=== PATIENT | female | born 1935 | race Caucasian/White ===

== ENCOUNTER 2020-05-09 15:57 | Emergency (ER) | payer OTHER ==
[~2020-05-09] VITALS: Ht 157.5 cm; Wt 65.3 kg
[2020-05-09 16:04] VITALS: Ht 157.5 cm; Wt 65.3 kg
[2020-05-09 19:11] VITALS: BP 161/76
== END 2020-05-09 19:11 | disposition home or self-care (01) ==
LOC: ED 15:57
DX: K13.0 Diseases of lips (principal); R51.9 Headache, unspecified; I10 Essential (primary) hypertension; E78.00 Pure hypercholesterolemia, unspecified; K21.9 Gastro-esophageal reflux disease without esophagitis; E03.9 Hypothyroidism, unspecified
CPT/HCPCS: 82962; J1885; J8597; Q0163